=== PATIENT | male | born 1950 | race Two or more races ===

== ENCOUNTER 2020-06-13 16:58 | Outpatient (REF) | payer MEDICARE, MEDICAID, SELFPAY | END 2020-06-13 16:59 | disposition home or self-care (01) | LOC: HO.LAB 16:58 | PROVIDERS: Visit Provider Internal Medicine | DX: Z20.828 Contact with and (suspected) exposure to other viral communicable diseases (principal) | CPT/HCPCS: C9803; U0003 ==

== ENCOUNTER 2020-11-25 10:03 | Outpatient (REF) | payer MEDICARE, MEDICAID, SELFPAY ==
[2020-11-25 10:26] LABS: COVID-19 Test Negative (Negative)
== END 2020-11-25 10:04 | disposition home or self-care (01) ==
LOC: HO.LAB 10:03
PROVIDERS: Visit Provider Internal Medicine
DX: Z20.822 Contact with and (suspected) exposure to COVID-19 (principal)
CPT/HCPCS: 36415; 87635; C9803

== ENCOUNTER 2023-04-07 08:10 | Outpatient (REF) | payer MEDICARE, MEDICAID, SELFPAY ==
[2023-04-07 11:53] LABS: Alanine Aminotransferase 15 U/L (0-40); Albumin Level 4.1 g/dL (3.5-5.0); Alkaline Phosphatase 86 U/L (39-117); Anion Gap 13 (12-20); Aspartate Amino Transferase 20 U/L (5-37); Bilirubin Total 0.8 mg/dL (0.0-1.0); Blood Urea Nitrogen 16 mg/dL (9-16); Carbon Dioxide 25 mmol/L (22-29); Chloride 107 mmol/L (96-108); Estimated Glomerular Filt Rate > 60; Glucose Random 95 mg/dL (60-115); Potassium 3.8 mmol/L (3.3-5.1); Sodium 141 mmol/L (135-145); Total Protein 7.2 g/dL (6.5-8.0)
== END 2023-04-07 08:11 | disposition home or self-care (01) ==
LOC: HO.HHCL 08:10
PROVIDERS: Visit Provider Nurse Practitioner Family
DX: I10 Essential (primary) hypertension (principal)
CPT/HCPCS: 36415; 80053

== ENCOUNTER 2023-05-17 07:56 | Outpatient (REF) | payer MEDICARE, MEDICAID, SELFPAY ==
[2023-05-17 11:41] LABS: Cholesterol 130 mg/dL (<200); HDL Cholesterol 37 mg/dL (>40); LDL Cholesterol Calculated 78 mg/dL (<100); Triglycerides 78 mg/dL (<150)
== END 2023-05-17 07:57 | disposition home or self-care (01) ==
LOC: HO.HHCL 07:56
PROVIDERS: Visit Provider Nurse Practitioner Family
DX: I10 Essential (primary) hypertension (principal)
CPT/HCPCS: 36415; 80061

== ENCOUNTER 2024-07-23 09:02 | Day surgery (SDC) | payer MEDICARE, MEDICAID, SELFPAY ==
[2024-07-17 15:04] VITALS: BMI 31.8
--- NOTE | 2024-07-19 14:48 | P.CONAN_ITS ---
Documented by User: Anamaria Harrington NP 07/19/24 14:48 HPI - Anesthesia Eval Consult details Narrative: 73yo M for Right Cataract Extraction IOL Insertion No previous cataract on record [facility] Past Medical History Medical History Impaired fasting glucose GERD (gastroesophageal reflux disease) HTN (hypertension) Chronic renal insufficiency Surgical History Surgical History H/O colonoscopy Social History Social History Household Members Other:: great grandson Are you a primary direct care staffer to a significant other at home: No Do you presently have visiting nurse or other home services: No Patient Tobacco Use Status: Never used Tobacco Use of substances other than those prescribed or required for medical reasons: No Have you been hit, kicked, punched, or otherwise hurt by someone within the past year? If so, by whom?: No Spiritual Healthcare Practices: none [employer] Healthcare Practices: [employer] Healthcare Practices: none Are you DNR?: No Advance Directives: No (great grandson is primary contact) Advance Directives Information Provided: Yes (as above noted) Advance Directives on File: No Eating poorly because of decreased appetite: No Nutrition Risks: No Nutritional Risk Poor oral hygiene: No (edentulous) Meds Allergies Allergy/AdvReac Type Severity Reaction Status Date / Time No Known Allergies Allergy Verified 07/17/24 15:07 Home Medications ?Medication ?Instructions ?Recorded ?Confirmed ?Last Taken ?Type amlodipine 10 mg tablet 10 mg PO QAM 07/17/24 07/17/24 07/23/24 History losartan 100 mg tablet 100 mg PO QAM 07/17/24 07/17/24 Unknown History omeprazole 20 mg capsule,delayed 20 mg PO DAILY 07/17/24 07/17/24 Unknown History release Exam Height,Weight and Vital Signs: Height 5 ft 8 in Weight 94.801 kg Assessment and Plan Assessment Anesthesia Assessment: Chart Reviewed Documented by User: Akua Goodman MD 07/23/24 12:31 [facility] Past Medical History Medical History Impaired fasting glucose GERD (gastroesophageal reflux disease) HTN (hypertension) Chronic renal insufficiency Family History Family history of problems with anesthesia: No Surgical History Surgical History H/O colonoscopy History of Problems with Anesthesia: No Social History Social History Household Members Other:: great grandson Are you a primary direct care staffer to a significant other at home: No Do you presently have visiting nurse or other home services: No Patient Tobacco Use Status: Never used Tobacco Use of substances other than those prescribed or required for medical reasons: No Have you been hit, kicked, punched, or otherwise hurt by someone within the past year? If so, by whom?: No Spiritual Healthcare Practices: none [employer] Healthcare Practices: [employer] Healthcare Practices: none Are you DNR?: No Advance Directives: No (great grandson is primary contact) Advance Directives Information Provided: Yes (as above noted) Advance Directives on File: No Eating poorly because of decreased appetite: No Nutrition Risks: No Nutritional Risk Poor oral hygiene: No (edentulous) Meds Allergies Allergy/AdvReac Type Severity Reaction Status Date / Time No Known Allergies Allergy Verified 07/17/24 15:07 Home Medications ?Medication ?Instructions ?Recorded ?Confirmed ?Last Taken ?Type amlodipine 10 mg tablet 10 mg PO QAM 07/17/24 07/17/24 07/23/24 History losartan 100 mg tablet 100 mg PO QAM 07/17/24 07/17/24 Unknown History omeprazole 20 mg capsule,delayed 20 mg PO DAILY 07/17/24 07/17/24 Unknown History release Exam Height,Weight and Vital Signs: Height 5 ft 8 in Weight 94.801 kg Vital Signs Temp Pulse Resp BP Pulse Ox O2 Del Method 07/23/24 11:19 97.7 F 53 16 149/77 H 97 Room Air Airway Mallampati Class: II TM Dist: >3cm Neck ROM: Full Loose/Missing/Broken Teeth: Yes (Edentulous) Heart: RRR Lungs: CTAB Assessment and Plan Assessment Anesthesia Assessment: Anesthesia Plan Discussed and Chart Reviewed Final Anesthetic Review Family History of Problems with Anesthesia: No History of Problems with Anesthesia: No NPO: Yes ASA Class: III Final Preanesthetic Review: No Changes in Pt Med Stat, Meds/Allgs Chart Reviewed, Consent Obtained/Reviewed and Anes Risks/Benef Reviewed Patient Risk: Intermediate Procedure Risk: Low Assessment/Block/Sedation in SS: Assess/Block/Sedation-SS Anesthetic Plan Anesthetic Plan: MAC: Disposition: Standard PACU
[2024-07-23 11:19] VITALS: BP 149/77; PULSE 53; RESP 16; TEMP 36.5; O2SAT 97
[2024-07-23] MEDS: Tetracaine HCl/PF 0.5% Oph Sol 4 ML DROPS 1 DROP EYE-RIGHT (11:27)
[2024-07-23] MEDS: Cyclopentolate 1 % Ophth Sol 2 ML DRPBTL 1 DROP EYE-RIGHT ×3 (11:28→11:35)
[2024-07-23] MEDS: Tropicamide 1 % Ophth Sol 3 ML BTL 1 DROP EYE-RIGHT ×3 (11:29→11:35)
[2024-07-23] MEDS: Ketorolac Tromethamine 0.5% Op 10 ML DROPS 1 DROP EYE-RIGHT ×3 (11:29→11:36)
[2024-07-23] MEDS: Phenylephrine HCL 2.5% Oph SoL 2 ML BOTTLE 1 DROP EYE-RIGHT ×3 (11:30→11:37)
[2024-07-23] MEDS: Lactated Ringers 500 ML 50 ML IV (11:41)
--- NOTE | 2024-07-23 12:23 | MHC.SHP ---
Pre-Procedural Eval Section A - 24 Hr Update-Section A only Date of Service: 07/23/24 The patient is an INPATIENT: No Changes since office visit: No Cold of Flu in the past 2 weeks, No New Medical Problems, No Changes in Medication and No Patient answered all questions The patient has been examined within 24 hours of the surgical procedure. The History & Physical has been completed within 30 days and I have reviewed it.: Yes Section B - Complete if H&P > 30 days Chief Complaint: Age-related nuclear cataract, right eye Allergies: Allergies Allergy/AdvReac Type Severity Reaction Status Date / Time No Known Allergies Allergy Verified 07/17/24 15:07 Plan Diagnosis/Plan: Unchanged I have reviewed the history and physical and performed a pertinent physical examination on my patient. No changes have occurred unless specified. Time Spent With Patient Time: Total time managing care of this patient today ____ minutes.
--- NOTE | 2024-07-23 12:25 | P.PCNO_ITS ---
Ophthalmology Procedure Procedure Date of Service: 07/23/24 Ophthalmology Viscoelastic: Healon Duet Dual Pack Pro Ophthalmology Lenses: IOL Acrysof MP - MA60AC (23.5) Procedure Notes: PREOPERATIVE DIAGNOSIS: Decreased visual acuity right eye secondary to cataract POSTOPERATIVE DIAGNOSIS: Same PROCEDURE: Right cataract extraction with intraocular lens insertion SURGEON: Cliff Blandon M.D. ANESTHESIA: Topical/MAC ESTIMATED BLOOD LOSS: None COMPLICATIONS: None After obtaining informed consent, the patient was brought to the operating room suite and placed in the supine position. After adequate sedation per anesthesia, topical drops of Tetracaine were given to the right eye. The eye was then prepped and draped in the usual sterile fashion. The operating room microscope was then positioned over the operative eye and a lid speculum placed. A paracentesis was created. Viscoelastic was then instilled into the anterior chamber. A three plane incision was then created temporally, utilizing a 2.85 mm keratome. Capsulotomy forceps were then utilized to create a circular tear capsulotomy. Hydrodissection and hydrodelineation were carried out until adequate mobilization of the nucleus occurred. Phacoemulsification was then utilized to remove the dense central nu cleus followed by removal of the cortical material utilizing the automated aspiration irrigation unit. Viscoelastic was instilled into the posterior capsular bag followed by placement of a posterior chamber intraocular lens without difficulty. The residual Viscoelastic was then removed utilizing the automated IA machine. The wound was checked and found to be watertight. The patient tolerated the procedure well and the lid speculum was removed. Intracameral injection of Vigamox 0.1 mL followed by a subtenon injection of Kenalog-40 0.2 mL were administered. The patient will be seen in the a.m.
[2024-07-23 13:40] VITALS: BP 147/86; PULSE 63; RESP 20; TEMP 36.3; O2SAT 95
[2024-07-23 13:55] VITALS: BP 122/74; PULSE 58; RESP 20; O2SAT 95
== END 2024-07-23 14:08 | disposition home or self-care (01) ==
PROVIDERS: PCP Internal Medicine Geriatric Medicine; Visit Provider Ophthalmology
PROC: (CPT 66985; principal; 2024-07-23 12:30)
DX: H25.11 Age-related nuclear cataract, right eye (principal); H52.4 Presbyopia; H18.413 Arcus senilis, bilateral; H11.153 Pinguecula, bilateral; H04.123 Dry eye syndrome of bilateral lacrimal glands; I12.9 Hypertensive chronic kidney disease with stage 1 through stage 4 chronic kidney disease, or unspecified chronic kidney disease; N18.30 Chronic kidney disease, stage 3 unspecified; R73.01 Impaired fasting glucose; K21.9 Gastro-esophageal reflux disease without esophagitis; Z79.899 Other long term (current) drug therapy
CPT/HCPCS: 66984; J2250; J3010; J3301; V2630

== ENCOUNTER 2024-08-03 08:25 | Outpatient (REF) | payer MEDICARE, MEDICAID, SELFPAY ==
[2024-08-03 11:45] LABS: MANUAL DIFF FLAG NO
[2024-08-03 12:01] LABS: Basophils Absolute Auto 0.1 X10*3/uL (0.0-0.2); Basophils Percent Auto 1.3 % (0-2); Eosinophils Absolute Auto 0.1 X10*3/uL (0.0-0.4); Eosinophils Percent Auto 2.6 % (0-4); Hematocrit 44.8 % (42.0-52.0); Hemoglobin 14.8 g/dl (14.0-18.0); Imm Gran Abs Auto 0.02 X10*3/uL (0.00-0.03); Imm Gran Pct Auto 0.4 % (0.0-0.4); Lymphocytes Absolute Auto 1.6 X10*3/uL (1.2-4.9); Lymphocytes Percent Auto 29.6 % (20-40); Mean Corpuscular Hemoglobin 28.9 pg (27.0-33.0); Mean Corpuscular Volume 87.5 fL (80.0-98.0); Monocytes Absolute Auto 0.4 X10*3/uL (0.1-1.2); Neutrophils Absolute Auto 3.1 x10*3/uL (2.0-8.3); Neutrophils Percent Auto 58.1 % (45-73); Platelet Count 218 X10*3/uL (160-400); Red Blood Count 5.12 X10*6/uL (4.60-5.80); Red Cell Distribution Width 13.5 % (11.0-16.0); White Blood Count 5.4 X10*3/uL (4.8-10.8)
[2024-08-03 12:40] LABS: Microalbum/Creatinine Ratio Ur 88.1 ug/mg cr (<30)
[2024-08-03 13:47] LABS: Alanine Aminotransferase 17 U/L (0-40); Albumin Level 4.1 g/dL (3.5-5.0); Anion Gap 10 (12-20); Aspartate Amino Transferase 33 U/L (5-37); Bilirubin Total 0.8 mg/dL (0.0-1.0); Blood Urea Nitrogen 18 mg/dL (9-16); Calcium 8.8 mg/dL (8.4-10.2); Carbon Dioxide 27 mmol/L (22-29); Chloride 107 mmol/L (96-108); Cholesterol 126 mg/dL (<200); Estimated Glomerular Filt Rate > 60; Glucose Random 105 mg/dL (60-115); HDL Cholesterol 35 mg/dL (>40); LDL Cholesterol Calculated 76 mg/dL (<100); Potassium 4.1 mmol/L (3.3-5.1); Sodium 140 mmol/L (135-145); Total Protein 7.4 g/dL (6.5-8.0); Triglycerides 78 mg/dL (<150)
[2024-08-03 14:19] LABS: Alkaline Phosphatase 96 U/L (39-117)
== END 2024-08-03 08:26 | disposition home or self-care (01) ==
LOC: HO.HHCL 08:25
PROVIDERS: Visit Provider Internal Medicine Geriatric Medicine
DX: I10 Essential (primary) hypertension (principal)
CPT/HCPCS: 36415; 80053; 80061; 82043; 82570; 85025

== ENCOUNTER 2024-08-06 08:20 | Day surgery (SDC) | payer MEDICARE, MEDICAID, SELFPAY ==
[2024-07-17 15:07] VITALS: BMI 31.8
--- NOTE | 2024-08-02 13:37 | HO.ANESPROP2 ---
Documented by User: Anamaria Harrington NP 08/02/24 13:37 HPI - Anesthesia Eval Consult details Narrative: 73yo M for Left Cataract Extraction IOL Insertion Right eye 07/23/24: Fent 50, Midaz 1 PMFSH Past Medical History Medical History (Updated 08/06/24 @ 10:27 by Chetna Arnold RN) Bilateral cataracts Impaired fasting glucose GERD (gastroesophageal reflux disease) HTN (hypertension) Chronic renal insufficiency Family History Family history of problems with anesthesia: No Surgical History Surgical History H/O colonoscopy History of Problems with Anesthesia: No Social History Social History Household Members Other:: great grandson Are you a primary child caregiver private home to a significant other at home: No Do you presently have visiting nurse or other home services: No Patient Tobacco Use Status: Never used Tobacco Use of substances other than those prescribed or required for medical reasons: No Have you been hit, kicked, punched, or otherwise hurt by someone within the past year? If so, by whom?: No Spiritual Healthcare Practices: none [facility] Practices: [employer] Healthcare Practices: none Advance Directives: No (great grandson is primary contact) Advance Directives Information Provided: Yes Advance Directives on File: No Recently lost weight without trying: No Eating poorly because of decreased appetite: No Nutrition Risks: No Nutritional Risk Poor oral hygiene: No (edentulous) Meds Allergies Allergy/AdvReac Type Severity Reaction Status Date / Time No Known Allergies Allergy Verified 07/17/24 15:07 Home Medications ?Medication ?Instructions ?Recorded ?Confirmed ?Last Taken ?Type amlodipine 10 mg tablet 10 mg PO QAM 07/17/24 07/17/24 07/23/24 History losartan 100 mg tablet 100 mg PO QAM 07/17/24 07/17/24 Unknown History omeprazole 20 mg capsule,delayed 20 mg PO DAILY 07/17/24 07/17/24 Unknown History release Exam Height,Weight and Vital Signs: Height 5 ft 8 in Weight 94.801 kg Assessment and Plan Assessment Anesthesia Assessment: Chart Reviewed Final Anesthetic Review Family History of Problems with Anesthesia: No History of Problems with Anesthesia: No Documented by User: Bertha Fritz MD 08/06/24 10:34 [facility] Past Medical History Medical History (Updated 08/06/24 @ 10:27 by Chetna Arnold RN) Bilateral cataracts Impaired fasting glucose GERD (gastroesophageal reflux disease) HTN (hypertension) Chronic renal insufficiency Surgical History Surgical History H/O colonoscopy Social History Social History Household Members Other:: great grandson Are you a primary child caregiver private home to a significant other at home: No Do you presently have visiting nurse or other home services: No Patient Tobacco Use Status: Never used Tobacco Use of substances other than those prescribed or required for medical reasons: No Have you been hit, kicked, punched, or otherwise hurt by someone within the past year? If so, by whom?: No Spiritual Healthcare Practices: none [facility] Practices: [employer] Healthcare Practices: none Advance Directives: No (great grandson is primary contact) Advance Directives Information Provided: Yes Advance Directives on File: No Recently lost weight without trying: No Eating poorly because of decreased appetite: No Nutrition Risks: No Nutritional Risk Poor oral hygiene: No (edentulous) Meds Allergies Allergy/AdvReac Type Severity Reaction Status Date / Time No Known Allergies Allergy Verified 07/17/24 15:07 Home Medications ?Medication ?Instructions ?Recorded ?Confirmed ?Last Taken ?Type amlodipine 10 mg tablet 10 mg PO QAM 07/17/24 07/17/24 07/23/24 History losartan 100 mg tablet 100 mg PO QAM 07/17/24 07/17/24 Unknown History omeprazole 20 mg capsule,delayed 20 mg PO DAILY 07/17/24 07/17/24 Unknown History release Exam Airway Mallampati Class: II TM Dist: >3cm Neck ROM: Full Denture: Upper and Lower Heart: rrr Lungs: cta Assessment and Plan Assessment Anesthesia Assessment: Anesthesia Plan Discussed Final Anesthetic Review NPO: Yes ASA Class: II Final Preanesthetic Review: No Changes in Pt Med Stat, Meds/Allgs Chart Reviewed and Consent Obtained/Reviewed Patient Risk: Low Procedure Risk: Low Anesthetic Plan Anesthetic Plan: MAC: Disposition: Standard PACU
[2024-08-06 10:22] VITALS: BP 151/73; PULSE 68; RESP 16; TEMP 36.4; O2SAT 98
[2024-08-06] MEDS: Tetracaine HCl/PF 0.5% Oph Sol 4 ML DROPS 1 DROP EYE-LEFT (10:41)
[2024-08-06] MEDS: Cyclopentolate 1 % Ophth Sol 2 ML DRPBTL 1 DROP EYE-LEFT ×3 (10:42→10:48)
[2024-08-06] MEDS: Tropicamide 1 % Ophth Sol 3 ML BTL 1 DROP EYE-LEFT ×3 (10:43→10:49)
[2024-08-06] MEDS: Ketorolac Tromethamine 0.5% Op 10 ML DROPS 1 DROP EYE-LEFT ×3 (10:44→10:50)
[2024-08-06] MEDS: Phenylephrine HCL 2.5% Oph SoL 2 ML BOTTLE 1 DROP EYE-LEFT ×3 (10:44→10:51)
[2024-08-06] MEDS: Lactated Ringers 500 ML 50 ML IV (10:51)
--- NOTE | 2024-08-06 11:17 | MHC.SHP ---
Pre-Procedural Eval Section A - 24 Hr Update-Section A only Date of Service: 08/06/24 The patient is an INPATIENT: No Changes since office visit: No Cold of Flu in the past 2 weeks, No New Medical Problems, No Changes in Medication and No Patient answered all questions The patient has been examined within 24 hours of the surgical procedure. The History & Physical has been completed within 30 days and I have reviewed it.: Yes Section B - Complete if H&P > 30 days Chief Complaint: Age-related nuclear cataract, left eye Allergies: Allergies Allergy/AdvReac Type Severity Reaction Status Date / Time No Known Allergies Allergy Verified 07/17/24 15:07 Plan Diagnosis/Plan: Unchanged I have reviewed the history and physical and performed a pertinent physical examination on my patient. No changes have occurred unless specified. Time Spent With Patient Time: Total time managing care of this patient today ____ minutes.
--- NOTE | 2024-08-06 11:18 | HO.PNOPHT ---
Ophthalmology Procedure Procedure Date of Service: 08/06/24 Ophthalmology Viscoelastic: Healon Duet Dual Pack Pro Ophthalmology Lenses: IOL Acrysof MP - MA60AC (23.5) Procedure Notes: PREOPERATIVE DIAGNOSIS: Decreased visual acuity left eye secondary to cataract POSTOPERATIVE DIAGNOSIS: Same PROCEDURE: Left cataract extraction with intraocular lens insertion, Vision Blue SURGEON: Cliff Blandon M.D. ANESTHESIA: Topical/MAC ESTIMATED BLOOD LOSS: None COMPLICATIONS: None After obtaining informed consent, the patient was brought to the operation room suite and placed in the supine position. After adequate sedation per anesthesia, topical drops of Tetracaine were given to the left eye. The eye was then prepped and draped in the usual sterile fashion. The operating room microscope was then positioned over the operative eye and a lid speculum placed. A paracentesis was created. Viscoelastic was then instilled into the anterior chamber. A three plane incision was then created temporally, utilizing a 2.85 mm keratome. Air was instilled into the anterior chamber followed by visio blue dye.Capsulotomy forceps were then utilized to create a circular tear capsulotomy. Hydrodissection and hydrodelineation were carried out until adequate mobilization of the nucleus occurred. Phacoemulsification was then utilized to remove the dense central nucleus followed by removal of the cortical material utilizing the automated aspiration irrigation unit. Viscoat elastic was instilled into the posterior capsular bag followed by placement of a posterior chamber intraocular lens without difficulty. The residual Viscoat elastic was then removed utilizing the automated IA machine. The wound was check and found to be watertight. The patient tolerated the procedure well and the lid speculum was removed. Intracameral injection of Vigamox 0.1 mL followed by a subtenon injection of Kenalog-40 0.2 mL were administered. The patient will be seen in the a.m.
[2024-08-06 11:50] VITALS: BP 137/94; PULSE 62; RESP 16; TEMP 36.1; O2SAT 97
--- OUTSIDE RECORDS SUMMARY | 2024-08-06 12:39 | XMS_ITS | Encounter Summary ---
Author Organization [employer] Address [address] [place] [address] Care Team Providers Care Test Clerk Name Role Phone Name, Sunil PHELPS Primary Care Provider [phone] Reason for Visit * Reason Onset Date Comments Medication Question 08/02/2024 Encounter Details Date Type Department Care Team ([facility] st Contact Info) Description 08/02/2024 Telephone [facility] [address], [place] [id number] Name, MD Sunil [address], [place] [id number] Medication Question Social History Tobacco Use Types Packs/Day Years Used Date Smoking Tobacco: Never Smokeless Tobacco: Never Alcohol Use Standard Drinks/Week Comments Never 0 (1 standard drink = 0.6 oz pur e alcohol) Depression Answer Date Recorded Patient Health Questionnaire-9 Score 4 07/13/2024 Patient Health Questionnaire-9 Score 4 07/13/2024 Last PHQ-9: Questionnaire Data Not on file 0 07/13/2024 Housing Stability Answer Date Recorded What is your housing situation today? I have sarkis whiting 04/25/[address] you li ve. Do you have problems with any of the following? None of the above 04/25/2023 Food Insecurity Answer Date Recorded Within the past 12 months, y ou worried that your food would run out before you got money to buy more: Never True 04/25/2023 Within the past 12 months,th e food you bought just didn't last and you didn't have enough money to get more: Never True Transportation Answer Date Recorded In the past 12 months, has l ack of transportation kept you from medical appts, meetings, work or from getting things needed for daily living? No 04/25/2023 Utilities Answer Date Recorded In the past 12 months, has t he electric, gas, oil or water company threatened to shut off services in your home? No 04/25/2023 Depression Answer Date Recorded Patient Health Questionnaire-2 Score 0 07/13/2024 Sex and Gender Information Value Date Recorded Sex Assigned at Male 05/10/2022 10:16 AM EDT Legal Sex Male 10:16 AM EDT Gender Identity Male 05/10/2022 10:16 AM EDT Sexual Orientation Straight 05/10/2022 10 :16 AM EDT documented as of this encounter Miscellaneous Notes * Telephone Encounter - Vesna Funk RN - 08/02/2024 4:33 PM EST Tc to [facility] for clarification on medications. Informed olga pt is continue taking their Amlodipine and losartan-hydroCHLOROthiazide (Hyzaar) to help get their BP at target goal. Olga asked if its okay for pt to take omeprazole with their BP medications and informed them it is generally safe. Informed that omeprazole is taken on an empty stomach and pt should wait 30 minutes after taking it before having a meal. Reminded them to check pt BP everyday, document their readings up until BP check visit with team nurse. Called [facility] pharmacy to clarify if its okay for these medications to be taken together and they confirm it is safe. Olga advised to f/u with PCP for any further questions or concerns. Olga verbalized understanding and denied any further questions. * Telephone Encounter - Hira Reis - 08/02/2024 4:13 PM EST Tc from Olga requesting call back to clarify if pt should be taking losartan-hydroCHLOROthiazide (Hyzaar) 100-12.5 MG tablet along with her other medication. If any questions you can contact pt at [phone]. documented in this encounter Plan of Treatment Upcoming Encounters Date Type Department Care Team (Late st Contact Info) Description 08/08/2024 11:00 AM EST Telemedicine [facility] [address] [place] [address] documented as of this encounter Goals Goal Patient Goal Type Associated Problems Recent Progress Patient-Stated? Author Blood Pressure < 140/90 Blood Pressure 152/90( 025 3:05 PM EST) Courtney Duckworth, Dora documented as of this encounter Visit Diagnoses Not on filedocumented in this encounter Additional Health Concerns Assessment Noted Time PHQ-9 Depression Total Score: 4 07/13/19 25 1:18 PM EST documented as of this encounter Care Teams Test Clerk Relationship Specialty Start Date End Date Name, MD Sunil [address] [place] [address] PCP - General Internal Medicine 03/13/24 documented as of this encounter
--- OUTSIDE RECORDS SUMMARY | 2024-08-06 12:39 | XMS_ITS | Encounter Summary ---
Author Organization [employer] Address [address] [place] [address] 7t [place] [address] Care Team Providers Care Tape Edge Machine Operator Name Role Phone Name, Sunil PHELPS Primary Care Provider [phone] Reason for Visit * Reason Comments Transfer patient Encounter Details Date Type Department Care Team ([facility] st Contact Info) Description 08/01/2024 2:45 PM EST Office Visit [facility] [address] [place], [place] [phone] Name, MD Sunil [address] [place], [place] [phone] Essential hypertension (Primary Dx); Stage 3 chronic kidney disease, unspecified whether stage 3a or 3b CKD (CMS/HCC); Impaired fasting blood sugar; Irregular heart beat Social History Tobacco Use Types Packs/Day Years [...] AM EDT documented as of this encounter Last Filed Vital Signs Vital Sign Reading Time Taken Comments Blood Pressure 152/90 08/01/2024 3:05 PM EST Pulse 59 08/01/2024 3:05 PM EST Temperature 35.8 ??C (96.4 ??F) 08/01/2024 3:05 PM ES T Respiratory Rate 20 08/01/2024 3:05 PM EST Oxygen Saturation 97% 08/01/2024 3:05 PM EST Inhaled Oxygen Concentration - - Weight 94.2 kg (207 lb 9.6 oz) 08/01/2024 3:05 P M EST Height 170.2 cm (5' 7 ) 08/01/2024 3:05 PM EST Body Mass Index 32.51 08/01/2024 3:05 PM EST documented in this encounter Progress Notes * Sunil Schrader MD - 08/01/2024 2:45 PM EST Subjective Patient ID: Amilcar Berry is a 73 y.o. male who presents for Transfer patient. HPI Patient comes for the first time to see me. He is accompanied by his great- grandson. The patient only speaks Albanian and he has limited education. He does not know how to read or write. He has past medical history of hypertension and CKD. He is treated with losartan and amlodipine. He tells me he uses medication daily. BP is elevated today. He is great-grandson checks his blood pressure at home daily and values are usually above 140/90. The patient walks almost daily. He does not have any chestpains or shortness of breath. Patient does not drink, smoke or use illicits. He used to work in a farm. Review of Systems Constitutional: Negative for chills, fatigue and fever. HENT: Negative for sore throat. Respiratory: Negative for cough, chest tightness and shortness of breath. Cardiovascular: Negative for chest pain, palpitations and leg swelling. Gastrointestinal: Negative for abdominal pain and blood in stool. Visit Vitals BP (!) 152/90 (BP Location: Right arm, Patient Position: Sitting, BP Cuff Size: Adult) Pulse 59 Temp 96.4 ??F (35.8 ??C) (Temporal) Resp 20 Ht 5' 7 (1.702 m) Wt 207 lb 9.6 oz (94.2 kg) SpO2 97% BMI 32.51 kg/m?? Smoking Status Never BSA 2.11 m?? Objective Physical Exam Constitutional: Appearance: Normal appearance. Cardiovascular: Rate and Rhythm: Normal rate. Rhythm irregular. Heart sounds: No murmur heard. Pulmonary: Effort: Pulmonary effort is normal. No respiratory distress. Breath sounds: No wheezing, rhonchi or rales. Abdominal: Palpations: Abdomen is soft. Tenderness: There is no abdominal tenderness. Musculoskeletal: Right lower leg: No edema. Left lower leg: No edema. Neurological: Mental Status: He is alert. EKG today: Patient heart rate of 63. Sinus arrhythmia. Premature supraventricular complexes were seen. No ST segment elevation or depression. Most importantly no A-fib. Lab Results Component Value Date WBC 5.9 11/10/2020 HGB 15.8 11/10/2020 Lab Results Component Value Date GLUCOSE 95 04/07/2023 NA 141 04/07/2023 K 3.8 04/07/2023 CO2 25 04/07/2023 CL 107 04/07/2023 BUN 16 04/07/2023 CREATININE 1.05 04/07/2023 Current Outpatient Medications on File Prior to Visit Medication Sig Dispense Refill amLODIPine (Norvasc) 10 MG tablet TAKE 1 TABLET BY MOUTH EVERY MORNING 90 tablet 1 Blood Pressure Monitor kit 1 kit 2 times daily. 1 kit 0 hydrocortisone (Anusol-HC) 2.5 % rectal cream Insert into the rectum 2 times daily. 28 g 0 omeprazole (PriLOSEC) [address] capsule TAKE 1 CAPSULE BY MOUTH EVERY DAY 90 capsule 1 [DISCONTINUED] losartan (Cozaar) 100 MG tablet Take 1 tablet (100 mg) by mouth in the morning. 90 tablet 3 No current facility-administered medications on file prior to visit. Assessment/Plan Diagnoses and all orders for this visit: Essential hypertension Comments: Continue amlodipine. Start losartan/HCTZ. I asked his great-grandson to continue checking his bloodpressure at home daily. Televisit with team nurse in a week for BP check. I recommended to check fasting blood work listed below. Orders: - CBC auto differential; Future - Comprehensive Metabolic Panel; Future - Lipid Panel, Standard; Future - Albumin, Random Urine W/Creatinine; Future Stage 3 chronic kidney disease, unspecified whether stage 3a or 3b CKD (CMS/HCC) Impaired fasting blood sugar Irregular heart beat - ECG 12 lead Other orders - losartan-hydroCHLOROthiazide (Hyzaar) 100-12.5 MG tablet; Take 1 tablet by mouth Once per day. documented in this encounter Plan of Treatment Upcoming Encounters Date Type Department Care Team (Late st Contact Info) Description 08/08/2024 11:00 AM EST Telemedicine [facility] [address] [place] [phone] documented as of this encounter Goals Goal Patient Goal Type Associated Problems Recent Progress Patient-Stated? Author Blood Pressure < 140/90 Blood Pressure 152/90( 025 3:05 PM EST) No Courtney Washington, AlfD documented as of this encounter Procedures Procedure Name Priority Date/Time Associated Diagnosis Comments ALBUMIN, RANDOM URINE W/CREATININE Routine 08/03/2024 8:27 AM EST Essential hypertension CBC WITH AUTO DIFFERENTIAL Routine 08/03/2024 8:27 AM EST Essential hypertension LIPID PANEL, STANDARD Routine 08/03/2024 8:27 AM EST Essential hypertension COMPREHENSIVE METABOLIC PANEL Routine 08/03/2024 8:27 AM EST Essential hypertension ECG 12-LEAD Routine 08/01/2024 3:29 PM EST Irregular heart beat documented in this encounter Results * (ABNORMAL) Albumin, Random Urine W/Creatinine (08/03/2024 8:27 AM EST) Creatinine, Urine 133.80 mg/dL [facility] Microalbumin Urine 118.0 mg/L [facility] Microalbum Creatinine Ratio Ur 88.1(H) <30 ug/mg cr [facility] Comment:Albumin/Creatinine R atio Reference Ranges: Normal: < 30 ug/mg creatinine Microalbuminuria: 30 - 300 ug/mg creatinineClinical Albuminuria: > 300 ug/mg creatinine Urine (Urine, Random) 08/03/2024 8:27 AM EST 08/03/2024 11:34 AM EST us Sunil Name MD LAB URINE ORDERABLES Final Resul t [facility] [address] [place] [phone] * (ABNORMAL) Lipid Panel, Standard (08/03/2024 8:27 AM EST) Triglycerides 78 <150 mg/dL [facility] Comment:Desirable Triglyceri de: less than 150 mg/dLBorderline High Triglyceride 150-199 mg/dLHigh Triglyceride: 200-499 mg/dLVery High Triglyceride: greater than or equal to 5OO mg/dL Cholesterol 126 <200 mg/dL [facility] Comment:Desirable Cholestero l: less than 200 mg/dLBorderline High Cholesterol: 200-239 mg/dLHigh Cholesterol: greater than 239 mg/dL LDL Cholesterol Calculated 76 <100 mg/dL [facility] Comment:Desirable LDL: less than 100 mg/dLNear Optimal/Above Optimal LDL: 110- 129 mg/dLBorderline High LDL: 130-159 mg/dLHigh LDL: 160-189 mg/dLVery High LDL: greater than or equal to 190 mg/dL HDL Cholesterol 35(L) >40 mg/dL [facility] Comment:Desirable HDL: great er than 40 mg/dL Note: This HDL assay may give artificially low results in patients with liver disease. Blood Venous blood specimen / Unknown 08/03/2024 8:27 AM EST 08/03/2024 11:38 AM EST us Sunil Schrader MD LAB BLOOD ORDERABLES Final Resul t [facility] [address] [place] [address] [phone] * (ABNORMAL) Comprehensive Metabolic Panel (08/03/2024 8:27 AM EST) Sodium 140 135 - 145 mmol/L [facility] Potassium 4.1 3.3 - 5.1 mmol/L [facility] Chloride 107 96 - 108 mmol/L [facility] Carbon Dioxide 27 22 - 29 mmol/L [facility] Anion Gap 10(L) 12 - 20 [facility] Urea Nitrogen (BUN) 18(H) 9 - 16 mg/dL [facility] Creatinine, Serum 1.02 0.5 - 1.4 mg/dL [facility] Estimated Glomerular Filt Rate >60 [facility] Comment:Chronic Kidney Disea se: Estimated GFR < 60 mL/min/1.05s9Dvhpvc Kidney Disease: Estimated GFR < 15 mL/min/1.73m2 Glucose 105 60 - 115 mg/dL [facility] Calcium 8.8 8.4 - 10.2 mg/dL [facility] Bilirubin, Total 0.8 0.0 - 1.0 mg/dL [facility] Aspartate Amino Transferase 33 5 - 37 U/L [facility] Alanine Aminotransferase 17 0 - 40 U/L [facility] Total Protein 7.4 6.5 - 8.0 g/dL [facility] Albumin Level 4.1 3.5 - 5.0 g/dL [facility] Alkaline Phosphatase 96 39 - 117 U/L [facility] Blood Venous blood specimen / Unknown 08/03/2024 8:27 AM EST 08/03/2024 11:38 AM EST us Sunil Name MD LAB BLOOD ORDERABLES Final Resul t [facility] [address] [place] [phone] * CBC auto differential (08/03/2024 8:27 AM EST) White Blood Count 5.4 4.8 - 10.8 X10*3/uL [facility] Red Blood Count 5.12 4.60 - 5.80 X10*6/uL [facility] Hemoglobin 14.8 14.0 - 18.0 g/dl [facility] Hematocrit 44.8 42.0 - 52.0 % [facility] Mean Corpuscular Volume 87.5 80.0 - 98.0 fL [facility] Mean Corpuscular Hemoglobin 28.9 27.0 - 33.0 pg [facility] Mean Corpuscular HGB Conc 33.0 31.0 - 36.0 g/dl [facility] Red Cell Distribution Width 13.5 11.0 - 16.0 % [facility] Platelet Count 218 160 - 400 X10*3/uL [facility] Mean Platelet Volume 10.0 9.4 - 12.4 fL [facility] Neutrophils Percent Auto 58.1 45 - 73 % [facility] Imm Gran Pct Auto 0.4 0.0 - 0.4 % [facility] Lymphocytes Percent Auto 29.6 20 - 40 % [facility] Monocytes Percent Auto 8.0 2 - 11 % [facility] Eosinophils Percent Auto 2.6 0 - 4 % [facility] Basophils Percent Auto 1.3 0 - 2 % [facility] NRBC Pct Auto 0.0 0.0 - 0.2 /100WBC [facility] Neutrophils Absolute Auto 3.1 2.0 - 8.3 x10*3/uL [facility] Imm Gran Abs Auto 0.02 0.00 - 0.03 X10*3/uL [facility] Lymphocytes Absolute Auto 1.6 1.2 - 4.9 X10*3/uL [facility] Monocytes Absolute Auto 0.4 0.1 - 1.2 X10*3/uL [facility] Eosinophils Absolute Auto 0.1 0.0 - 0.4 X10*3/uL [facility] Basophils Absolute Auto 0.1 0.0 - 0.2 X10*3/uL [facility] NRBC Abs Auto 0.000 0.0 - 0.012 X10*3/uL [facility] Blood Venous blood specimen / Unknown 08/03/2024 8:27 AM EST 08/03/2024 11:38 AM EST us Sunil Schrader MD LAB BLOOD ORDERABLES Final Resul t [facility] [address] [place] [phone] [phone] * ECG 12 lead (08/01/2024 3:29 PM EST) Narrative Name, MD Sunil - 08/01/2024 3:29 PM EST Patient heart rate of 63. ??Sinus arrhythmia. ??Premature supraventricular complexes were seen. ??No ST segment elevation or depression. ??Most importantly no A-fib. Sunil Schrader MD ECG ORDERABLES Final Result documented in this encounter Visit Diagnoses Diagnosis Essential hypertension- Primary Unspecified essential hypertension Stage 3 chronic kidney disease, unspecified whether stage 3a or 3b CKD (CMS/HCC) Impaired fasting blood sugar Impaired fasting glucose Irregular heart beat Unspecified cardiac dysrhythmia documented in this encounter Additional Health Concerns Assessment Noted Time PHQ-9 Depression Total Score: 4 07/13/19 25 1:18 PM EST documented as of this encounter Care Teams Tape Edge Machine Operator Relationship Specialty Start Date End Date Name, MD Sunil [address] [place] [address] PCP - General Internal Medicine 03/13/24 documented as of this encounter
--- OUTSIDE RECORDS SUMMARY | 2024-08-06 12:39 | XMS_ITS | Encounter Summary ---
Author Organization [employer] Address [address] [place] [address] [address]t [place] [address] Care Team Providers Care Tool Maintenance Technician Name Role Phone Name, Sunil PHELPS Primary Care Provider [phone] Reason for Visit * Reason Comments Pre-visit Planning LVM Encounter Details Date Type Department Care Team ([facility] st Contact Info) Description 07/25/2024 Patient Outreach [facility] [address] [place], [place] [phone] Name, MD Sunil [address] [place] [address] Pre-visit Planning (LVM ) Social History Tobacco Use Types Packs/Day Years [...] AM EDT documented as of this encounter Progress Notes * Christy Sams - 07/25/2024 9:18 AM EST CC Christy Gray placed outbound call to patient to complete pre-visit planning. No answer at this time. Patient name and were not confirmed. CC left voicemail requesting return call. Direct contactinformation provided. documented in this encounter Plan of Treatment Upcoming Encounters Date Type Department Care Team (Late st Contact Info) Description 08/08/2024 11:00 AM EST Telemedicine [facility] [address] [place] [address] documented as of this encounter Goals Goal Patient Goal Type Associated Problems Recent Progress Patient-Stated? Author Blood Pressure < 140/90 Blood Pressure 152/90( 025 3:05 PM EST) No Courtney Washington, Dora documented as of this encounter Visit Diagnoses Not on filedocumented in this encounter Additional Health Concerns Assessment Noted Time PHQ-9 Depression Total Score: 4 07/13/19 25 1:18 PM EST documented as of this encounter Care Teams Tool Maintenance Technician Relationship Specialty Start Date End Date Name, MD Sunil [address] [place] [address] PCP - General Internal Medicine 03/13/24 documented as of this encounter
--- OUTSIDE RECORDS SUMMARY | 2024-08-06 12:39 | XMS_ITS | Encounter Summary ---
Author Organization [employer] Address [address] [place] [address] 7t [place] [address] Care Team Providers Care Seat Nailer Name Role Phone Karrie Burnette Primary Care Provider [phone] NameSunil MD Primary Care Provider [phone] Reason for Referral * Consultation (Routine) - Closed Specialty Diagnoses / Procedures Referred By Alina schaefer Referred To Contact Pharmacy Diagnoses Unable to read or write Karrie Burnette FNP [address] [place] [address] Phone: tel: fax: Referral ID Status Reason Start Date Expiration Date V isits Requested Visits Authorized [id number] Closed Continuity of Care 05/16/2023 05/15/2024 1 1 Encounter Details Date Type Department Care Team (Late st Contact Info) Description 05/16/2023 Orders Only [facility] [address] [place], [place] [phone] Karrie Burnette FNP [address] [place] [address] 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) Social History Tobacco Use Types Packs/Day Years Used Date Smoking Tobacco: Never Smokeless Tobacco: Never Alcohol Use Standard Drinks/Week Comments Never 0 (1 standard drink = 0.6 oz pur e alcohol) Depression Answer Date Recorded Patient Health Questionnaire-9 Score 0 04/01/2023 Housing Stability Answer Date Recorded What is [...] Date Recorded Patient Health Questionnaire-2 Score 0 04/01/2023 Sex and Gender Information Value Date Recorded Sex Assigned at Male 05/10/2022 10:16 AM EDT Legal Sex Male 10:16 AM EDT Gender Identity Male 05/10/2022 10:16 AM EDT Sexual Orientation Straight 05/10/2022 10 :16 AM EDT documented as of this encounter Plan of Treatment Upcoming Encounters Date Type Department Care Team (Late st Contact Info) Description 08/08/2024 11:00 AM EST Telemedicine [facility] [address] [place] [address] Scheduled Referrals Name Type Priority Associated Diagnoses Orde r Schedule Referral to Pharmacy MTM Outpatient Referral Routine Unable to read or write Ordered: 05/16/2023 documented as of this encounter Visit Diagnoses Diagnosis Unable to read or write- Primary documented in this encounter Additional Health Concerns Assessment Noted Time PHQ-9 Depression Total Score: 0 04/01/20 23 2:56 PM EDT documented as of this encounter Care Teams Seat Nailer Relationship Specialty Start Date End Date Karrie Burnette FNP [address] [place] [address] PCP - General Family Medicine 01/17/23 03/12/24 Name, MD Sunil [address] [place] [address] PCP - General Internal Medicine 03/13/24 documented as of this encounter
--- OUTSIDE RECORDS SUMMARY | 2024-08-06 12:39 | XMS_ITS | Encounter Summary ---
Author Organization [employer] Address [address] [place] [address] 7t [place] [address] Care Team Providers Care Asset Protection Detective Name Role Phone Karrie Burnette Primary Care Provider [phone] NameSunil MD Primary Care Provider [phone] Reason for Visit * Reason Comments Med Refill Encounter Details Date Type Department Care Team (Late st Contact Info) Description 11/15/2023 Refill [facility] [address] [place], [place] [phone] Karrie Burnette FNP [address] [place] [address] Social History Tobacco Use Types Packs/Day Years [...] 08/08/2024 11:00 AM EST Telemedicine [facility] [address] [place] [address] documented as of this encounter Goals Goal Patient Goal Type Associated Problems Recent Progress Patient-Stated? Author Blood Pressure < 140/90 Blood Pressure 152/90( 025 3:05 PM EST) No Courtney Washington, AlfD documented as of this encounter Visit Diagnoses Not on filedocumented in this encounter Additional Health Concerns Assessment Noted Time PHQ-9 Depression Total Score: 0 04/01/20 23 2:56 PM EDT documented as of this encounter Care Teams Asset Protection Detective Relationship Specialty Start Date End Date Karrie Burnette FNP [address] [place] [address] PCP - General Family Medicine 01/17/23 03/12/24 Name, MD Sunil [address] [place] [address] PCP - General Internal Medicine 03/13/24 documented as of this encounter
--- OUTSIDE RECORDS SUMMARY | 2024-08-06 12:40 | XMS_ITS | Encounter Summary ---
Author Organization [employer] Address [address] [facility] 7t [place] [address] Care Team Providers Care Principal Database Developer Name Role Phone Karrie Burnette Primary Care Provider [phone] Name, Sunil PHELPS Primary Care Provider [phone] Reason for Visit * Reason Comments Med Refill Encounter Details Date Type Department Care Team (Late st Contact Info) Description 03/05/2024 Refill [facility] [address] [place], [place] [phone] Karrie Burnette FNP [address] [place], [place] [phone] Gastroesophageal reflux disease without esophagitis Social History Tobacco Use Types Packs/Day Years [...] Info) Description 08/08/2024 11:00 AM EST Telemedicine [facility] [address] [place] [address] documented as of this encounter Goals Goal Patient Goal Type Associated Problems Recent Progress Patient-Stated? Author Blood Pressure < 140/90 Blood Pressure 152/90( 025 3:05 PM EST) No Courtney Washington, AlfD documented as of this encounter Visit Diagnoses Diagnosis Gastroesophageal reflux disease without esophagitis Esophageal reflux documented in this encounter Additional Health Concerns Assessment Noted Time PHQ-9 Depression Total Score: 0 04/01/20 23 2:56 PM EDT documented as of this encounter Care Teams Principal Database Developer Relationship Specialty Start Date End Date Karrie Burnette FNP [address] [place] [address] PCP - General Family Medicine 01/17/23 03/12/24 Sunil Schrader MD [address] [place] [address] PCP - General Internal Medicine 03/13/24 documented as of this encounter
--- OUTSIDE RECORDS SUMMARY | 2024-08-06 12:40 | XMS_ITS | Encounter Summary ---
Author Organization [employer] Address [address] [place] [address] 7[address] [place] [address] Care Team Providers Care Lens Cleaner Name Role Phone Karrie Burnette Primary Care Provider [phone] NameSunil MD Primary Care Provider Reason for Visit * Reason Onset Date Comments Med Refill 02/01/2023 Encounter Details Date Type Department Care Team (Late st Contact Info) Description 02/01/2023 Telephone [facility] [address] [place] [address] Karrie Burnette FNP [address] [place] [address] Med Refill Social History Tobacco Use Types Packs/Day Years Used Date Smoking Tobacco: Never Assessed Sex and Gender Information Value Date Recorded Sex Assigned at Male 05/10/2022 10:16 AM EDT Legal Sex Male 10:16 AM EDT Gender Identity Male 05/10/2022 10:16 AM EDT Sexual Orientation Straight 05/10/2022 10 :16 AM EDT documented as of this encounter Miscellaneous Notes * Telephone Encounter - Elizabeth Martini LPN - 02/01/2023 11:42 AM EDT Please note medication was pended on 01/21/23.Is it denied? * Telephone Encounter - Stefani Morales - 02/01/2023 11:22 AM EDT Tc from pt requesting med refill for medication amLODIPine (Norvasc) 10 MG tablet. documented in this encounter Plan of Treatment Upcoming Encounters Date Type Department Care Team (Late st Contact Info) Description 08/08/2024 11:00 AM EST Telemedicine [facility] [address] [place] [address] documented as of this encounter Visit Diagnoses Not on filedocumented in this encounter Care Teams Lens Cleaner Relationship Specialty Start Date End Date Karrie Burnette FNP [address] [place] [address] PCP - General Family Medicine 01/17/23 03/12/24 Name, MD Sunil [address] [place] [address] PCP - General Internal Medicine 03/13/24 documented as of this encounter
--- OUTSIDE RECORDS SUMMARY | 2024-08-06 12:40 | XMS_ITS | Encounter Summary ---
Author Organization [employer] Address [address] [place] [address] [address] [place] [address] Care Team Providers Care Relocation Manager Name Role Phone Beata Duque Primary Care Provider [phone] Karrie Burnette Primary Care Provider [phone] Name, Sunil PHELPS Primary Care Provider [phone] Encounter Details Date Type Department Care Team (Late st Contact Info) Description 07/14/2022 Orders Only [facility] PEDS [address] [place] [address] Caitlyn Cartagena LPN Social History Tobacco Use Types Packs/Day Years [...] Info) Description 08/08/2024 11:00 AM EST Telemedicine [facility] [address] [place] [address] documented as of this encounter Visit Diagnoses Not on filedocumented in this encounter Care Teams Relocation Manager Relationship Specialty Start Date End Date Beata Duque FNP PCP - General Family Medicine 06/09/22 01/16/23 Karrie Burnette FNP [address] [place], [place] [phone] PCP - General Family Medicine 01/17/23 03/12/24 Name, MD Sunil [address] [place] [address] [place] [address] PCP - General Internal Medicine 03/13/24 documented as of this encounter
--- OUTSIDE RECORDS SUMMARY | 2024-08-06 12:40 | XMS_ITS | Encounter Summary ---
Author Organization [email or web address] Address [address] [place] [address] 7[address] [place] [address] Care Team Providers Care Glue Bone Crusher Name Role Phone Name, Sunil PHELPS Primary Care Provider [phone] Reason for Visit * Reason Comments Pre-op Exam Encounter Details Date Type Department Care Team ([facility] st Contact Info) Description 07/13/2024 1:30 PM EST Office Visit [facility] [address] [place], [place] [id number] Name, MD Sunil [address] [place], [place] [phone] Hemorrhoids, unspecified hemorrhoid type (Primary Dx); Cataract of both eyes, unspecified cataract type; Pre-op evaluation; Essential hypertension Social History Tobacco Use Types Packs/Day Years [...] Sign Reading Time Taken Comments Blood Pressure 146/86 07/13/2024 2:10 PM EST Pulse 60 07/13/2024 1:14 PM EST Temperature 36.6 ??C (97.9 ??F) 07/13/2024 1:14 PM ES T Respiratory Rate 16 07/13/2024 1:14 PM EST Oxygen Saturation 97% 07/13/2024 1:14 PM EST Inhaled Oxygen Concentration - - Weight 95.2 kg (209 lb 12.8 oz) 07/13/2024 1:14 PM EST Height - - Body Mass Index 32.86 06/13/2023 1:47 PM EST documented in this encounter Progress Notes * Linda Garcia, ANOOP - 07/13/2024 1:30 PM EST Amilcar Berry is a 73 y.o. male with hx of CKD3, impaired fasting glucose, GERD, and HTN who presents to the office for a preoperative evaluation. Denies recent illness, injury, or hospitalization. No concerns expressed today. Date of Surgery: Right Eye 07/23/24 Left Eye 08/06/24 Surgical procedure being done: Cataract surgery Type of anesthesia: MAC Lab needed: No EKG: No Surgeon's name: Cliff Blandon [place] [facility] [place] office number: [phone] option 1 has for Lizette Surgeon's office fax number: [phone] Chronic Medical Conditions: Patient Active Problem List Diagnosis CKD (chronic kidney disease) stage 3, GFR 30-59 ml/min ([facility]) Essential hypertension Gastroesophageal reflux disease Impaired fasting blood sugar Allergies: No Known Allergies Review of Systems Denies personal or family history of bleeding diathesis or life-threatening anesthetic reactions Denies thyroid disease, liver disease, asthma, or diabetes. Denies history of stroke. Denies problems with pain, stiffness, or arthritis in neck or jaw. Denies history of sleep apnea, loud snoring, or waking from sleep choking or gasping. Denies allergy to tape, iodine, or latex Able to walk up a flight of stairs or run across a street without needing to stop to catch breath No known cardiac history, denies history of irregular heartbeat No history of alcohol withdrawal; not a regular, heavy drinker. Positive hx for CKD 3 Lab Results Component Value Date CREATININE 1.05 04/07/2023 OBJECTIVE Visit Vitals BP (!) 146/86 Pulse 60 Temp 97.9 ??F (36.6 ??C) (Oral) Resp 16 Wt 209 lb 12.8 oz (95.2 kg) SpO2 97% BMI 32.86 kg/m?? Smoking Status Never BSA 2.12 m?? Physical Exam Vitals reviewed. Constitutional: General: He is not in acute distress. Appearance: Normal appearance. He is not ill-appearing, toxic-appearing or diaphoretic. HENT: Head: Normocephalic and atraumatic. Cardiovascular: Rate and Rhythm: Normal rate and regular rhythm. Pulses: Normal pulses. Heart sounds: Normal heart sounds. No murmur heard. No friction rub. No gallop. Pulmonary: Effort: Pulmonary effort is normal. No respiratory distress. Breath sounds: Normal breath sounds. No stridor. No wheezing, rhonchi or rales. Chest: Chest wall: No tenderness. Musculoskeletal: Right lower leg: No edema. Left lower leg: No edema. Neurological: General: No focal deficit present. Mental Status: He is alert and oriented to person, place, and time. Mental status is at baseline. Psychiatric: Mood and Affect: Mood normal. Behavior: Behavior normal. Thought Content: Thought content normal. Judgment: Judgment normal. Problem List Items Addressed This Visit Essential hypertension BP mildly elevated today, denies CP, HOLLOWAY, dizziness, SOB today, denies any additional cardiac history Pt taking amlodipine 10 mg and Losartan 100 mg daily as prescribed Pt does take Bps occasionally at home, encouraged pt to check BP twice daily and to restrict salt intake. With lifestyle modifications and continuing medication regimen pt may proceed with surgery. Pre-op evaluation PREOPERATIVE ASSESSMENT AND PLAN: Active cardiac conditions that are contraindications to elective surgery: Surgery-Specific Cardiac Risk: low Cardiac risk by patient profile (RCRI): Patient has 0 risk factors corresponding to 0.4%risk of a major cardiac event during surgery. Functional capacity = 6 METS. The patient reports being able to walk up 1 one flight of stairs and 2 blocks without stopping. This patient is at low risk for an low risk procedure. The patient is at acceptable risk for the proposed procedure. Reviewed with patient that no surgery is completely free of risk and this evaluation is to assist surgeon in accurately reviewing informed consent. Cataract of both eyes Hemorrhoids - Primary Sent anusol cream per pt request for hemorrhoids, pt prefers cream over suppositories at this time. Relevant Medications hydrocortisone (Anusol-HC) 2.5 % rectal cream documented in this encounter Miscellaneous Notes * Assessment & Plan Note - Linda Garcia CNP - 07/13/2024 2:28 PM EST Associated Problem(s): Hemorrhoids Sent anusol cream per pt request for hemorrhoids, pt prefers cream over suppositories at this time. * Assessment & Plan Note - Linda Garcia CNP - 07/13/2024 2:27 PM EST Associated Problem(s): Pre-op evaluation (Resolved 08/01/2024) PREOPERATIVE ASSESSMENT AND PLAN: Active cardiac conditions that are contraindications to elective surgery: Surgery-Specific Cardiac Risk: low Cardiac risk by patient profile (RCRI): Patient has 0 risk factors corresponding to 0.4%risk of a major cardiac event during surgery. Functional capacity = 6 METS. The patient reports being able to walk up 1 one flight of stairs and 2 blocks without stopping. This patient is at low risk for an low risk procedure. The patient is at acceptable risk for the proposed procedure. Reviewed with patient that no surgery is completely free of risk and this evaluation is to assist surgeon in accurately reviewing informed consent. * Assessment & Plan Note - Linda Garcia CNP - 07/13/2024 2:26 PM EST Associated Problem(s): Essential hypertension BP mildly elevated today, denies CP, HOLLOWAY, dizziness, SOB today, denies any additional cardiac history Pt taking amlodipine 10 mg and Losartan 100 mg daily as prescribed Pt does take Bps occasionally at home, encouraged pt to check BP twice daily and to restrict salt intake. With lifestyle modifications and continuing medication regimen pt may proceed with surgery. documented in this encounter Plan of Treatment Upcoming Encounters Date Type Department Care Team (Late st Contact Info) Description 08/08/2024 11:00 AM EST Telemedicine [facility] [address] [place] [address] documented as of this encounter Goals Goal Patient Goal Type Associated Problems Recent Progress Patient-Stated? Author Blood Pressure < 140/90 Blood Pressure 152/90( 025 3:05 PM EST) Courtney Duckworth, Dora documented as of this encounter Visit Diagnoses Diagnosis Hemorrhoids, unspecified hemorrhoid type- Primary Cataract of both eyes, unspecified cataract type Pre-op evaluation Essential hypertension Unspecified essential hypertension documented in this encounter Additional Health Concerns Assessment Noted Time PHQ-9 Depression Total Score: 4 07/13/19 25 1:18 PM EST documented as of this encounter Care Teams Glue Bone Crusher Relationship Specialty Start Date End Date Name, MD Sunil [address] [place] [address] PCP - General Internal Medicine 03/13/24 documented as of this encounter
--- OUTSIDE RECORDS SUMMARY | 2024-08-06 12:40 | XMS_ITS | Encounter Summary ---
Author Organization [employer] Address [address] [place] [address] [place] [address] Care Team Providers Care Forestry Hunter Name Role Phone Karrie Burnette Primary Care Provider [phone] Name, Sunil PHELPS Primary Care Provider Reason for Visit * Reason Comments Med Refill Encounter Details Date Type Department Care Team (Late st Contact Info) Description 01/20/2023 Refill [facility] [address] [place] [phone] Beata Duque FNP [address] [place] [address] Dept [place] [address] Primary hypertension Social History Tobacco Use Types Packs/Day Years Used Date Smoking Tobacco: Never Assessed Sex and Gender Information Value Date Recorded Sex Assigned at Male 05/10/2022 10:16 AM EDT Legal Sex Male 10:16 AM EDT Gender Identity Male 05/10/2022 10:16 AM EDT Sexual Orientation Straight 05/10/2022 10 :16 AM EDT documented as of this encounter Miscellaneous Notes * Telephone Encounter - MIKHAIL Mcdonnell - 03/03/2023 3:43 PM EDT Filled February 04 for 90 day supply documented in this encounter Plan of Treatment Upcoming Encounters Date Type Department Care Team (Late st Contact Info) Description 08/08/2024 11:00 AM EST Telemedicine [facility] [address] [place], [place] [phone] documented as of this encounter Visit Diagnoses Diagnosis Primary hypertension Unspecified essential hypertension documented in this encounter Care Teams Forestry Hunter Relationship Specialty Start Date End Date Karrie Burnette FNP [address] [place] [address] PCP - General Family Medicine 01/17/23 03/12/24 Name, MD Sunil [address] [place] [address] PCP - General Internal Medicine 03/13/24 documented as of this encounter
--- OUTSIDE RECORDS SUMMARY | 2024-08-06 12:40 | XMS_ITS | Encounter Summary ---
Author Organization [employer] Address [address] [facility] [address] [place] [address] Care Team Providers Care Cloth Shrinking Supervisor Name Role Phone Name, Sunil PHELPS Primary Care Provider [phone] Encounter Details Date Type Department Care Team (Latest Contact Info) Description 07/13/2024 Travel Social History Tobacco Use Types Packs/Day Years [...] Telemedicine [facility] [address] [place] [address] documented as of this encounter Goals Goal Patient Goal Type Associated Problems Recent Progress Patient-Stated? Author Blood Pressure < 140/90 Blood Pressure 152/90( 025 3:05 PM EST) Courtney Duckworth, AlfD documented as of this encounter Visit Diagnoses Not on filedocumented in this encounter Additional Health Concerns Assessment Noted Time PHQ-9 Depression Total Score: 4 07/13/19 25 1:18 PM EST documented as of this encounter Care Teams Cloth Shrinking Supervisor Relationship Specialty Start Date End Date Name, MD Sunil [address] [place] [address] PCP - General Internal Medicine 03/13/24 documented as of this encounter
--- OUTSIDE RECORDS SUMMARY | 2024-08-06 12:40 | XMS_ITS | Encounter Summary ---
Author Organization [employer] [facility] Address [address] [place] [address] 7 [place] [address] Care Team Providers Care Administrative Processor Name Role Phone Karrie Burnette Primary Care Provider [phone] Sunil Schrader MD Primary Care Provider [phone] Encounter Details Date Type Department Care Team (Late st Contact Info) Description 02/01/2023 Orders Only [facility] [address] [place] [id number] Karrie Burnette FNP [address] [place] [address] Social History Tobacco Use Types Packs/Day Years [...] Info) Description 08/08/2024 11:00 AM EST Telemedicine [facility] [address] [place] [phone] documented as of this encounter Visit Diagnoses Not on filedocumented in this encounter Care Teams Administrative Processor Relationship Specialty Start Date End Date Karrie Burnette FNP [address] [place] [address] PCP - General Family Medicine 01/17/23 03/12/24 Sunil Schrader MD [address] [place] [address] PCP - General Internal Medicine 03/13/24 documented as of this encounter
--- OUTSIDE RECORDS SUMMARY | 2024-08-06 12:40 | XMS_ITS | Clinical Summary ---
Author Organization [employer] Address [address] [place] [address] [address] [place] [address] Care Team Providers Care Php Software Engineer Name Role Phone Name, Sunil PHELPS Primary Care Provider [phone] Allergies No known active allergies Medications Blood Pressure Monitor kitIndications:H ypertension, unspecified type 1 kit 2 times daily. 1 kit 3 Active amLODIPine (Norvasc) 10 MG tablet TAKE 1 TABLET BY MOUTH EVERY MORNING 90 tablet 1 4 Active omeprazole (PriLOSEC) [address] capsuleIndicatio ns:Gastroesophag eal reflux disease without esophagitis TAKE 1 CAPSULE BY MOUTH EVERY DAY 90 capsule 1 4 Active hydrocortisone (Anusol-HC) 2.5 % rectal creamIndications :Hemorrhoids, unspecified hemorrhoid type Insert into the rectum 2 times daily. 28 g 5 Active losartan-hydroCH LOROthiazide (Hyzaar) 100-12.5 MG tablet Take 1 tablet by mouth Once per day. 30 tablet 11 5 08/01/19 26 Active losartan (Cozaar) 100 MG tablet Take 1 tablet (100 mg) by mouth in the morning. 90 tablet 3 4 08/01/19 25 Discontinu ed(Therapy completed) Active Problems Problem Noted Date Diagnosed Date Illiteracy and low-level literacy 08/01/2024 Cataract of both eyes 07/13/2024 Hemorrhoids 07/13/2024 Assessment & Plan (07/13/2024 2:28 PM EST): Sent anusol cream per pt request for hemorrhoids, pt prefers cream over suppositories at this time. CKD (chronic kidney disease) stage 3, GFR 30-59 ml/min 05/26/2023 05/26/2023 Impaired fasting blood sugar 05/26/2023 Essential hypertension 01/31/2015 Assessment & Plan (07/13/2024 2:26 PM EST): BP mildly elevated today, denies CP, HOLLOWAY, dizziness, SOB today, denies any additional cardiac history Pt taking amlodipine 10 mg and Losartan 100 mg daily as prescribed Pt does take Bps occasionally at home, encouraged pt to check BP twice daily and to restrict salt intake. With lifestyle modifications and continuing medication regimen pt may proceed with surgery. Gastroesophageal reflux disease 01/31/2015 05/26/2023 Resolved Problems Problem Noted Date Diagnosed Date Resolved Date Pre-op evaluation 07/13/2024 08/01/2024 Assessment & Plan (07/13/2024 2:27 PM EST): PREOPERATIVE ASSESSMENT AND PLAN: Active cardiac conditions [...] assist surgeon in accurately reviewing informed consent. Encounters Date Type Department Care Team Description 08/02/2024 Telephone [facility] [address] [place] [address] Name, MD Sunil Medication Question 08/01/2024 2:45 PM EST Office Visit [facility] [address] [place] [address] NameSunil MD Essential hypertension (Primary Dx); Stage 3 chronic kidney disease, unspecified whether stage 3a or 3b CKD ([facility]); Impaired fasting blood sugar; Irregular heart beat 07/25/2024 Patient Outreach [facility] [address] [place] [address] Sunil Schrader MD Pre-visit Planning (LVM ) 07/13/2024 1:30 PM EST Office Visit [facility] [address] [place] [address] Sunil Schrader MD Hemorrhoids, unspecified hemorrhoid type (Primary Dx); Cataract of both eyes, unspecified cataract type; Pre-op evaluation; Essential hypertension 07/13/2024 Travel 06/28/2024 Telephone [facility] [address] [place] [address] Sunil Schrader MD Chart Prep 05/24/2024 Telephone [facility] [address] [place] [address] Sunil Schrader MD Pre op from Last 3 Months Immunizations Name Administration Dates Next Due Influenza High-dose Quadriva lent Preservative Free 05/16/2023 Influenza injectable quadriv alent IIV4 with preservative 06/09/2016,08/29/2015 Influenza, High Dose Seasona l, Preservative Free 09/14/2019,06/14/2018 Pneumococcal Conjugate PCV 13 03/17/2021 Pneumococcal Polysaccharide PPSV23 09/14/2019,,08/29/2015 Td (adult), 5 Lf tetanus tox oid, preservative free, adsorbed 07/11/2014 Tdap 08/29/2015 Zoster, Recombinant 05/29/2021,03/17/2021 Zoster, live 08/29/2015 Family History Medical History Relation Name Comments Diabetes type II Father Diabetes type II Mother Relation Name Status Comments Father Mother Social History Tobacco Use Types Packs/Day Years Used Date Smoking Tobacco: Never Smokeless Tobacco: Never Tobacco Cessation:Counseling Given: Not Answered Alcohol Use Standard Drinks/Week Comments Never 0 [...] Orientation Straight 05/10/2022 10 :16 AM EDT Last Filed Vital Signs Vital Sign Reading [...] Mass Index 32.51 08/01/2024 3:05 PM EST Plan of Treatment Upcoming Encounters Date Type Department Care Team (Late st Contact Info) Description 08/08/2024 11:00 AM EST Telemedicine [facility] [address] [place] [address] Health Maintenance Due Date Last Done Comments CT Colonography 1950 Colonoscopy 1950 Colorectal Cancer Screening 1950 FIT DNA/Cologuard 1950 FIT 1950 FOBT 1950 Sigmoidoscopy 1950 Hepatitis C Screening 1968 COVID-19 Vaccine ( season) 2024 07/09/2021, 11/29/2020 Influenza Vaccine (#1) 2024 , 09/14/2019, 06/14/2018, Additional history exists SDOH Screening 04/01/2024 04/01/2023 Alcohol/Substance Use Screening 07/13/2025 07/13/2024 Depression Screening 07/13/2025 07/13/2024, 07/13/19 Tobacco Screening 08/01/2025 08/01/2024 RSV Patients and Patients Aged 60 years or older (1 - 1-dose 75+ series) 2025 DTaP/Tdap/Td Vaccines (2 - Td or Tdap) 08/29/2025 08/29/2015, 07/11/2014 Lipid Panel 08/03/2029 08/03/2024, 01/2023, 11/10/2020 Pneumococcal Vaccine: 65+ Years Completed 03/17/2021, 09/14/2019, 06/14/2018, Additional history exists Zoster Vaccines Completed 05/29/2021, 01/2021, 08/29/2015 HIB Vaccines Aged Out No longer eligi ble based on patient's age to complete this topic HPV Vaccines Aged Out No longer eligi ble based on patient's age to complete this topic Hepatitis A Vaccines Aged Out No long er eligible based on patient's age to complete this topic Hepatitis B Vaccines Aged Out No long er eligible based on patient's age to complete this topic IPV Vaccines Aged Out No longer eligi ble based on patient's age to complete this topic Meningococcal Vaccine Aged Out No scott jean eligible based on patient's age to complete this topic RSV under 20 months Aged Out No longe r eligible based on patient's age to complete this topic Rotavirus Vaccines Aged Out No longer eligible based on patient's age to complete this topic Goals Goal Patient Goal Type Associated Problems Recent Progress Patient-Stated? Author Blood Pressure < 140/90 Blood Pressure 152/90( 025 3:05 PM EST) No [place], Courtney, PharmD Procedures Procedure Name Priority Date/Time Associated Diagnosis Comments ALBUMIN, RANDOM URINE W/CREATININE Routine 08/03/2024 8:27 AM EST Essential hypertension LIPID PANEL, STANDARD Routine 08/03/2024 8:27 AM EST Essential hypertension COMPREHENSIVE METABOLIC PANEL Routine 08/03/2024 8:27 AM EST Essential hypertension CBC WITH AUTO DIFFERENTIAL Routine 08/03/2024 8:27 AM EST Essential hypertension ECG 12-LEAD Routine 08/01/2024 3:29 PM EST Irregular heart beat from Last 3 Months Results * (ABNORMAL) Albumin, Random Urine W/Creatinine (08/03/2024 8:27 AM EST) Creatinine, Urine 133.80 mg/dL [facility] Microalbumin Urine 118.0 mg/L [facility] Microalbum Creatinine Ratio Ur 88.1(H) <30 ug/mg cr [facility] Comment:Albumin/Creatinine R atio Reference Ranges: Normal: < 30 ug/mg creatinine Microalbuminuria: 30 - 300 ug/mg creatinineClinical Albuminuria: > 300 ug/mg creatinine Urine (Urine, Random) 08/03/2024 8:27 AM EST 08/03/2024 11:34 AM EST us Sunil Schrader MD LAB URINE ORDERABLES Final Resul t [facility] [address] [place] [phone] * CBC auto differential (08/03/2024 8:27 AM EST) White Blood Count 5.4 4.8 - 10.8 X10*3/uL [facility] Red Blood Count 5.12 4.60 - 5.80 X10*6/uL [facility] Hemoglobin 14.8 14.0 - 18.0 g/dl [facility] Hematocrit 44.8 42.0 - 52.0 % [facility] Mean Corpuscular Volume 87.5 80.0 - 98.0 fL [facility] Mean Corpuscular Hemoglobin 28.9 27.0 - 33.0 pg [facility] Mean Corpuscular HGB Conc 33.0 31.0 - 36.0 g/dl [facility] Red Cell Distribution Width 13.5 11.0 - 16.0 % [facility] Platelet Count 218 160 - 400 X10*3/uL [facility] Mean Platelet Volume 10.0 9.4 - 12.4 fL [facility] Neutrophils Percent Auto 58.1 45 - 73 % [facility] Imm Gran Pct Auto 0.4 0.0 - 0.4 % [facility] Lymphocytes Percent Auto 29.6 20 - 40 % [facility] Monocytes Percent Auto 8.0 2 - 11 % [facility] Eosinophils Percent Auto 2.6 0 - 4 % [facility] Basophils Percent Auto 1.3 0 - 2 % [facility] NRBC Pct Auto 0.0 0.0 - 0.2 /100WBC [facility] Neutrophils Absolute Auto 3.1 2.0 - 8.3 x10*3/uL [facility] Imm Gran Abs Auto 0.02 0.00 - 0.03 X10*3/uL [facility] Lymphocytes Absolute Auto 1.6 1.2 - 4.9 X10*3/uL [facility] Monocytes Absolute Auto 0.4 0.1 - 1.2 X10*3/uL [facility] Eosinophils Absolute Auto 0.1 0.0 - 0.4 X10*3/uL [facility] Basophils Absolute Auto 0.1 0.0 - 0.2 X10*3/uL [facility] NRBC Abs Auto 0.000 0.0 - 0.012 X10*3/uL [facility] Blood Venous blood specimen / Unknown 08/03/2024 8:27 AM EST 08/03/2024 11:38 AM EST us Sunilshira Schrader MD LAB BLOOD ORDERABLES Final Resul t Performing Organization Address [facility] Co de Phone Number [facility] [address] [place] [address] [phone] * (ABNORMAL) Lipid Panel, Standard (08/03/2024 8:27 AM EST) Triglycerides 78 <150 mg/dL [facility] Comment:Desirable Triglyceri de: less than 150 mg/dLBorderline High Triglyceride 150-199 mg/dLHigh Triglyceride: 200-499 mg/dLVery High Triglyceride: greater than or equal to 5OO mg/dL Cholesterol 126 <200 mg/dL [facility] Comment:Desirable Cholestero l: less than 200 mg/dLBorderline High Cholesterol: 200-239 mg/dLHigh Cholesterol: greater than 239 mg/dL LDL Cholesterol Calculated 76 <100 mg/dL [facility] Comment:Desirable LDL: less than 100 mg/dLNear Optimal/Above Optimal LDL: 110- 129 mg/dLBorderline High LDL: 130-159 mg/dLHigh LDL: 160-189 mg/dLVery High LDL: greater than or equal to 190 mg/dL HDL Cholesterol 35(L) >40 mg/dL [facility] Comment:Desirable HDL: great er than 40 mg/dL Note: This HDL assay may give artificially low results in patients with liver disease. Blood Venous blood specimen / Unknown 08/03/2024 8:27 AM EST 08/03/2024 11:38 AM EST us Sunil Schrader MD LAB BLOOD ORDERABLES Final Resul t Performing Organization Address [facility]/ZIP Co de Phone Number [facility] [address] [place] [address] [phone] * (ABNORMAL) Comprehensive Metabolic Panel (08/03/2024 8:27 AM EST) Sodium 140 135 - 145 mmol/L [facility] Potassium 4.1 3.3 - 5.1 mmol/L [facility] Chloride 107 96 - 108 mmol/L [facility] Carbon Dioxide 27 22 - 29 mmol/L [facility] Anion Gap 10(L) 12 - 20 [facility] Urea Nitrogen (BUN) 18(H) 9 - 16 mg/dL [facility] Creatinine, Serum 1.02 0.5 - 1.4 mg/dL [facility] Estimated Glomerular Filt Rate >60 [facility] Comment:Chronic Kidney Disea se: Estimated GFR < 60 mL/min/1.97m3Krsgig Kidney Disease: Estimated GFR < 15 mL/min/1.73m2 Glucose 105 60 - 115 mg/dL [facility] Calcium 8.8 8.4 - 10.2 mg/dL [facility] Bilirubin, Total 0.8 0.0 - 1.0 mg/dL [facility] Aspartate Amino Transferase 33 5 - 37 U/L [facility] Alanine Aminotransferase 17 0 - 40 U/L [facility] Total Protein 7.4 6.5 - 8.0 g/dL [facility] Albumin Level 4.1 3.5 - 5.0 g/dL [facility] Alkaline Phosphatase 96 39 - 117 U/L [facility] Blood Venous blood specimen / Unknown 08/03/2024 8:27 AM EST 08/03/2024 11:38 AM EST us Sunil Schrader MD LAB BLOOD ORDERABLES Final Resul t [facility] [address] [place] [phone] * ECG 12 lead (08/01/2024 3:29 PM EST) Narrative Name, MD Sunil - 08/01/2024 3:29 PM EST Patient heart rate of 63. ??Sinus arrhythmia. ??Premature supraventricular complexes were seen. ??No ST segment elevation or depression. ??Most importantly no A-fib. us Sunil Schrader MD ECG ORDERABLES Final Result from Last 3 Months Insurance MEDICARE [facility] STANDARD Care Teams Php Software Engineer Relationship Specialty Start Date End Date Name, MD Sunil [address] [place] [phone] PCP - General Internal Medicine 03/13/24
== END 2024-08-06 11:56 | disposition home or self-care (01) ==
PROVIDERS: Visit Provider Ophthalmology
PROC: (CPT 66985; principal; 2024-08-06 12:00)
DX: H25.12 Age-related nuclear cataract, left eye (principal); H52.4 Presbyopia; I12.9 Hypertensive chronic kidney disease with stage 1 through stage 4 chronic kidney disease, or unspecified chronic kidney disease; N18.30 Chronic kidney disease, stage 3 unspecified; R73.01 Impaired fasting glucose; Z79.899 Other long term (current) drug therapy; H18.413 Arcus senilis, bilateral; H11.153 Pinguecula, bilateral; H04.123 Dry eye syndrome of bilateral lacrimal glands
CPT/HCPCS: 66984; J2250; J3301; V2630